=== PATIENT | male | born 1960 | race Caucasian/White ===

== ENCOUNTER → 2018-02-02 | Outpatient (CLI) | payer BC ==
[2018-02-02 10:25] LABS: ABSOLUTE EOSINOPHILS # (AUTO) 0.1 10^3/uL (0.0-0.6); ABSOLUTE LYMPHOCYTES (AUTO) 1.3 10^3/uL (0.5-4.7); ABSOLUTE MONOCYTES (AUTO) 0.5 10^3/uL (0.1-1.4); ABSOLUTE NEUT (AUTO) 2.7 10^3/uL (1.7-8.2); BASOPHILS % (AUTO) 0.8 % (0-2); EOSINOPHILS % (AUTO) 1.5 % (0-6); HEMATOCRIT 45.8 % (37.9-51.0); HEMOGLOBIN 15.7 g/dL (13.5-17.0); LYMPHOCYTES % (AUTO) 29.4 % (13-45); MEAN CORPUSCULAR HEMOGLOBIN 32.2 pg (27.0-33.4); MEAN CORPUSCULAR HGB CONC 34.2 g/dL (32.0-36.0); MEAN CORPUSCULAR VOLUME 94 fl (80-97); MONOCYTES % (AUTO) 9.8 % (3-13); PLATELET COUNT 181 10^3/uL (150-450); RED BLOOD COUNT 4.86 10^6/uL (4.35-5.55); RED CELL DISTRIBUTION WIDTH 13.1 % (11.5-14.0); SEGMENTED NEUTROPHILS % (AUTO) 58.5 % (42-78); TOTAL CELLS COUNTED % (AUTO) 100 %; WHITE BLOOD COUNT 4.6 10^3/uL (4.0-10.5)
[2018-02-02 10:35] LABS: APPEARANCE,URINE SLIGHTLY-CLOUDY; BILIRUBIN,URINE NEGATIVE (NEGATIVE); COLOR,URINE YELLOW; GLUCOSE, URINE >=500 mg/dL (NEGATIVE); KETONES,URINE NEGATIVE (NEGATIVE); LEUKOCYTE ESTERASE,URINE NEGATIVE (NEGATIVE); NITRITE,URINE NEGATIVE (NEGATIVE); PROTEIN,URINE NEGATIVE (NEGATIVE); URINE SPECIFIC GRAVITY 1.024; UROBILINOGEN,URINE NEGATIVE mg/dL (<2.0)
--- NOTE | 2018-02-02 10:54 | RADIOLOGY REPORT (SQ) ---
EXAM DESCRIPTION: CHEST PA/LATERAL COMPLETED DATE/TIME: 02/02/2018 10:06 am REASON FOR STUDY: TYPE 2 DIABETES MELLITUS WITHOUT COMPLICATIONS COMPARISON: 01/02/2015 EXAM PARAMETERS: NUMBER OF VIEWS: two views TECHNIQUE: Digital Frontal and Lateral radiographic views of the chest acquired. RADIATION DOSE: NA LIMITATIONS: none FINDINGS: LUNGS AND PLEURA: No opacities, masses or pneumothorax. No pleural effusion. MEDIASTINUM AND HILAR STRUCTURES: No masses or contour abnormalities. HEART AND VASCULAR STRUCTURES: Heart normal size. No evidence for failure. BONES: No acute findings. HARDWARE: None in the chest. OTHER: No other significant finding. IMPRESSION: NO SIGNIFICANT RADIOGRAPHIC FINDING IN THE CHEST. TECHNICAL DOCUMENTATION: JOB ID: [id number] [employer]- All Rights Reserved Reading location - IP/workstation name: [email or web address]
[2018-02-02 10:58] LABS: ANION GAP 14 (5-19); BLOOD UREA NITROGEN 22 mg/dL (7-20); CALCIUM 10.1 mg/dL (8.4-10.2); CARBON DIOXIDE 28 mmol/L (22-30); CHLORIDE 101 mmol/L (98-107); GLUCOSE 323 mg/dL (75-110); POTASSIUM 5.3 mmol/L (3.6-5.0); SODIUM 142.8 mmol/L (137-145)
--- NOTE | 2018-02-02 13:27 | EKG REPORT ---
SEVERITY:- NORMAL ECG - SINUS RHYTHM : Confirmed by: Fransisco Yanes MD 02-Feb-2018 13:26:48
== END ==
LOC: OD 09:27
PROVIDERS: ATTEND Orthopaedic Surgery
DX: E11.9 Type 2 diabetes mellitus without complications (principal); E78.00 Pure hypercholesterolemia, unspecified
CPT/HCPCS: 36415; 71046; 80048; 81001; 83036; 85025; 93005; 93010

== ENCOUNTER → 2018-02-26 | Outpatient (CLI) | payer BC ==
[2018-02-26 11:29] LABS: ANION GAP 12 (5-19); BLOOD UREA NITROGEN 17 mg/dL (7-20); CALCIUM 9.7 mg/dL (8.4-10.2); CARBON DIOXIDE 24 mmol/L (22-30); CHLORIDE 108 mmol/L (98-107); GLUCOSE 114 mg/dL (75-110); POTASSIUM 4.3 mmol/L (3.6-5.0); SODIUM 143.6 mmol/L (137-145)
== END ==
LOC: OD 09:58
PROVIDERS: ATTEND Orthopaedic Surgery
DX: Z01.810 Encounter for preprocedural cardiovascular examination (principal); Z01.812 Encounter for preprocedural laboratory examination
CPT/HCPCS: 36415; 80048; 83036

== ENCOUNTER 2018-03-02 05:36 | Inpatient (IN) | payer BC ==
[~2018-03-02 05:36] MED LIST: BUPIVACAINE INJ/PF LIPOSOME/PF 266 MG/20 ML SDV IJ PRN; BUPIVACAINE INJ/PF LIPOSOME/PF 266 MG/20 ML SDV INJ PRN; CEFAZOLIN INJ 1 GM VIAL IV PRN; IBUPROFEN 800 MG in NORMAL SALINE 250 ML IV PRN; LACTATED RINGERS 1000 ML IV PRN; LANSOPRAZOLE 15 MG TAB.RAP.DR PO PRN; LIDOCAINE 0.5% INJ-PF (5 MG/ML) 50 ML SDV SUBCUT PRN; OXYCODONE HCL SR 10 MG TABLET PO PRN
[2018-03-02] MEDS: VANCOMYCIN HCL 1,000 MG in DEXTROSE 5%-WATER 250 ML IV PRN ×2 (05:46→11:18)
[2018-03-02] MEDS: OXYCODONE HCL SR 10 MG TABLET PO PRN ×2 (06:15→11:18)
[2018-03-02] MEDS: LANSOPRAZOLE 15 MG TAB.RAP.DR PO PRN ×2 (06:16→11:18)
[2018-03-02] MEDS ORDERED: LIDOCAINE 2% INJ-PF (20 MG/ML) 10 ML AMPUL ONE (06:34)
[2018-03-02] MEDS ORDERED: FENTANYL CITRATE INJ/PF 100 MCG/2 ML AMPUL ONE ×2 (06:34→07:20)
[2018-03-02] MEDS ORDERED: ACETAMINOPHEN 1,000 MG/100 ML RTUPB IV ONE (06:35)
[2018-03-02] MEDS ORDERED: ONDANSETRON HCL INJ/PF 4 MG/2 ML SDV ONE (06:35)
[2018-03-02] MEDS ORDERED: MIDAZOLAM 2 MG/2 ML INJ ONE (06:35)
[2018-03-02] MEDS ORDERED: PROPOFOL INJ 200 MG/20 ML VIAL IV ONE (06:35)
[2018-03-02] MEDS ORDERED: DEXAMETHASONE SOD PHOSPHATE INJ 4 MG/1 ML VIAL ONE (06:35)
[2018-03-02] MEDS ORDERED: BUPIVACAINE HCL/DEX-WATER/PF 15 MG/2 ML AMPULE ONE (06:36)
[2018-03-02] MEDS ORDERED: BUPIVACAINE INJ/PF LIPOSOME/PF 266 MG/20 ML SDV ONE (06:40)
[2018-03-02] MEDS ORDERED: THROMBIN (BOVINE) 5000 UNIT EPITAXIS KIT ONE (06:40)
[2018-03-02] MEDS ORDERED: THROMBIN (BOVINE) TOPICAL 20000 UNIT VIAL ONE (06:40)
[2018-03-02] MEDS ORDERED: PROMETHAZINE HCL INJ 25 MG/1 ML VIAL IV PRN ×2 (07:55)
[2018-03-02] MEDS ORDERED: MORPHINE SULFATE 10 MG/ML INJ IV PRN ×4 (07:55→08:27)
[2018-03-02] MEDS ORDERED: MEPERIDINE HCL/PF INJ 25 MG/1 ML DISP.SYRIN IV PRN (07:55)
[2018-03-02] MEDS ORDERED: FENTANYL CITRATE INJ/PF 100 MCG/2 ML AMPUL IV PRN ×3 (07:55)
[2018-03-02] MEDS ORDERED: DIPHENHYDRAMINE HCL 50 MG/ML VIAL IV PRN ×2 (07:55→08:27)
--- NOTE | 2018-03-02 08:26 | Operative Report ---
Operative Report DATE OF SURGERY: 03/02/18 PREOPERATIVE DIAGNOSIS: Right knee arthritis OPERATION: Right knee arthroplasty SURGEON: ADRIANNA ALLEN ANESTHESIA: GA TISSUE REMOVED OR ALTERED: Bone to pathology ESTIMATED BLOOD LOSS: 100 PROCEDURE: Implants used: Femur: [place] triathlon size 5 CR femur Tibia: 4 tibia Tibial liner: 11 mm CS insert Patella: 35 mm oval patella Procedure with the patient supine on the operating table the right the limb is prepped and draped in a sterile fashion. The limb was elevated for exsanguination and the tourniquet inflated to 280 torr. A standard midline median parapatellar approach the knee is taken. Access is gained to the femoral canal through the intercondylar notch. Intramedullary alignment instrumentation used to resect 10 mm of distal femur in 5 of valgus. Sizing guide indicated a size 5 femur. Appropriate cutting jig is then used to fashion anterior posterior and chamfer cuts. A trial reduction femurs performed and this is judged to be adequate. Attention was next turned to the tibia. Using an extra medullary alignment system 9 millimeters was resected off the lateral tibial plateau. This is sized to a size 4 tibia. A trial reduction was now performed with a 5 femur and a for tibia using a 11 millimeters spacer. It is full extension and central patellofemoral tracking. The articular surface the patella was next resected using an oscillating saw. All trial implants were removed. Polymethylmethacrylate is mixed and used to cement the above implants in place. On adequate curing the cement excess cement was removed the tourniquet was deflated hemostasis obtained the wound is then closed in layers using interrupted Vicryl followed by stephani. A sterile compressive dressing was applied and the patient returned to recovery room in satisfactory condition.
[2018-03-02] MEDS ORDERED: MORPHINE SULFATE 10 MG/ML INJ IM PRN (08:27)
[2018-03-02] MEDS ORDERED: ZOLPIDEM TARTRATE 5 MG TABLET PO PRN (08:27)
[2018-03-02] MEDS ORDERED: ACETAMINOPHEN 325 MG TABLET PO PRN (08:27)
[2018-03-02] MEDS ORDERED: ONDANSETRON 4 MG TAB.RAPDIS PO PRN (08:27)
[2018-03-02] MEDS ORDERED: RINGERS SOLUTION,LACTATED 1,000 ML IV PRN (08:27)
[2018-03-02] MEDS ORDERED: ONDANSETRON HCL INJ/PF 4 MG/2 ML SDV IV PRN (08:27)
[2018-03-02] MEDS ORDERED: MAG HYDROX/AL HYDROX/SIMETH SUSP 30 ML UDCUP PO PRN (08:27)
[2018-03-02] MEDS: FENTANYL CITRATE INJ/PF 100 MCG/2 ML AMPUL ONE ×2 (08:48→08:53)
[2018-03-02] MEDS ORDERED: DEXTROSE 50%-WATER SYRINGE 12.5 GM/25 ML DOSE IV PRN (09:14)
[2018-03-02] MEDS ORDERED: DEXTROSE 50%-WATER SYRINGE 25 GM/50 ML DOSE IV PRN (09:14)
[2018-03-02] MEDS ORDERED: DEXTROSE 40% GEL 15 GM TUBE PO PRN (09:14)
[2018-03-02] MEDS ORDERED: INSULIN LISPRO 100 UNIT/ML 3 ML VIAL SUBCUT PRN (09:14)
[2018-03-02] MEDS ORDERED: GLUCAGON,HUMAN RECOMB 1 MG INJ IM PRN (09:14)
[2018-03-02] MEDS ORDERED: DEXTROSE 40% GEL 15 GM TUBE X 2 PO PRN (09:14)
--- NOTE | 2018-03-02 09:38 | RADIOLOGY REPORT (SQ) ---
EXAM DESCRIPTION: KNEE RIGHT 2 VIEWS COMPLETED DATE/TIME: 03/02/2018 9:00 am REASON FOR STUDY: Post OP -Long Cassette in PACU M17.0 BILATERAL PRIMARY OSTEOARTHRITIS OF KNEE COMPARISON: None. NUMBER OF VIEWS: Two view(s). TECHNIQUE: Digital radiographic images of the right knee post-procedure. LIMITATIONS: None. FINDINGS: BONES: No worrisome or unexpected findings post-procedure. DEVICE: Total knee arthroplasty. SOFT TISSUES: No worrisome findings. Expected postoperative soft tissue changes. IMPRESSION: SATISFACTORY POSTOPERATIVE RIGHT KNEE. TECHNICAL DOCUMENTATION: JOB ID: [id number] [employer]- All Rights Reserved Reading location - IP/workstation name: [email or web address]
[2018-03-02] MEDS ORDERED: IBUPROFEN 800 MG in NORMAL SALINE 250 ML IV SCH (10:00)
[2018-03-02] MEDS ORDERED: CYANOCOBALAMIN 5000 MCG PO SCH (10:00)
[2018-03-02] MEDS ORDERED: (PENDING PHARMACY ID) (Metformin Hcl [Metformin Hcl] 1,000 MG) PO SCH (10:00)
[2018-03-02] MEDS ORDERED: (PENDING PHARMACY ID) (Canagliflozin [Invokana] 100 MG) PO SCH (10:00)
[2018-03-02] MEDS ORDERED: PIOGLITAZONE PO SCH (10:00)
[2018-03-02] MEDS ORDERED: OXYCODONE HCL SR 10 MG TABLET PO SCH (10:00)
[2018-03-02] MEDS ORDERED: ALOGLIPTIN PO SCH (10:00)
[2018-03-02] MEDS ORDERED: TRANEXAMIC ACID INJ/PF 1,000 MG/10 ML SDV IV ONE (10:00)
[2018-03-02] MEDS ORDERED: TADALAFIL 5 MG PO SCH (10:00)
[2018-03-02] MEDS ORDERED: (PENDING PHARMACY ID) (Rosuvastatin Calcium [Crestor 5 Mg Tablet] 5 MG) PO SCH (10:00)
[2018-03-02] MEDS ORDERED: CYANOCOBALAMIN (VITAMIN B-12) 1,000 MCG TABLET PO ONE (11:00)
[2018-03-02] MEDS: ASPIRIN 81 MG TABLET, CHEWABLE PO SCH (11:01)
[2018-03-02] MEDS: ENALAPRIL MALEATE 2.5 MG TABLET PO SCH ×2 (11:03→11:18)
[2018-03-02] MEDS: IBUPROFEN 800 MG in NORMAL SALINE 250 ML IV PRN ×2 (11:18→11:25)
[2018-03-02] MEDS: SENNOSIDES/DOCUSATE 8.6-50 MG 1 EACH TABLET PO SCH ×2 (11:23→18:37)
[2018-03-02] MEDS: PRENATAL VITAMIN W DHA CAPSULE PO SCH (11:24)
[2018-03-02] MEDS: FAMOTIDINE 20 MG TABLET PO SCH ×2 (11:24→18:40)
[2018-03-02] MEDS: OXYCODONE HCL IR 5 MG TABLET PO PRN ×2 (11:39→22:09)
[2018-03-02] MEDS: IBUPROFEN 800 MG in NORMAL SALINE 250 ML IV SCH ×2 (14:55→22:00)
[2018-03-02] MEDS ORDERED: SUCCINYLCHOLINE CHLORIDE INJ 200 MG/10 ML VIAL ONE (16:22)
[2018-03-02] MEDS ORDERED: ENALAPRIL MALEATE 2.5 MG TABLET PO SCH (18:00)
[2018-03-02] MEDS: OXYCODONE HCL SR 10 MG TABLET PO SCH (18:37)
[2018-03-02] MEDS: METFORMIN HCL 500 MG TABLET PO SCH (18:40)
[2018-03-02] MEDS ORDERED: VANCOMYCIN HCL 1,000 MG in DEXTROSE 5%-WATER 250 ML IV ONE (20:28)
[2018-03-02] MEDS: PREGABALIN 75 MG CAPSULE PO SCH (22:00)
[2018-03-02] MEDS ORDERED: ATORVASTATIN CALCIUM 10 MG TABLET PO SCH (22:00)
[2018-03-03] MEDS ORDERED: LANSOPRAZOLE 30 MG TAB.RAP.DR PO SCH (06:00)
[2018-03-03] MEDS: IBUPROFEN 800 MG in NORMAL SALINE 250 ML IV SCH (06:16)
[2018-03-03] MEDS: OXYCODONE HCL SR 10 MG TABLET PO SCH (06:16)
--- NOTE | 2018-03-03 06:32 | PDOC DISCHARGE SUMMARY ---
General - Admit/Disc Date/PCP Admission Date/Primary Care Provider: 03/02/18 05:36 HOLLY LOZANO Discharge Date: 03/03/18 - Discharge Diagnosis (1) Arthritis of right knee Is this a current diagnosis for this admission?: Yes - Additional Information Resuscitation Status: Full Code Discharge Diet: As Tolerated, Regular Discharge Activity: Balance Activity w/Rest, No Driving, No tub bath Home Medications: Alogliptin Adin/Pioglitazone [Oseni 25-30 mg Tablet] 1 tab PO DAILY 02/17/18 Aspirin [Aspirin 81 mg Chewable Tablet] 81 mg PO DAILY 02/17/18 Canagliflozin [Invokana] 100 mg PO DAILY 02/17/18 Cyanocobalamin (Vitamin B-12) [B-12] 5,000 mcg PO DAILY 02/17/18 Enalapril Maleate 1.25 mg PO DAILY 02/17/18 Famotidine 20 mg PO BID 02/17/18 Hydrocodone Bit/Acetaminophen [Hydrocodon-Acetaminophn 10-325] 1 tab PO Q8HP PRN 02/17/18 Ibuprofen [Motrin 800 mg Tablet] 800 mg PO BIDP PRN 02/17/18 Loratadine [Claritin 10 mg Tablet] 10 mg PO DAILYP PRN 02/17/18 Metformin HCl 1,000 mg PO BID 02/17/18 [place]-3 Fatty Acids/Fish Oil [Fish Oil 1,000 mg Capsule] 1,000 mg PO DAILY 02/17 Pregabalin [Lyrica] 150 mg PO BID 02/17/18 Rosuvastatin Calcium [Crestor 5 mg Tablet] 5 mg PO QHS 02/17/18 Tadalafil [Cialis] 5 mg PO QHS 02/17/18 Testosterone Cypionate [Depo-Testosterone] 100 mg IM .MONTHLY PRN 02/17/18 Cholecalciferol (Vitamin D3) [Vitamin D3 1000 Unit Tablet] 1,000 unit PO DAILY 03/02/18 Oxycodone HCl [Oxy-Ir 5 mg Tablet] 5 mg PO Q6HP PRN tablet 03/03/18 History of Present Illness History of Present Illness: JHOANA MADRIDSWETA JR is a 57 year old male Patient is a 57-year-old white male with past medical history significant for adult-onset diabetes with progressive bilateral knee pain and functional disability secondary osteoarthritis. Patient is admitted for an elective right knee arthroplasty. Hospital Course Hospital Course: Patient is admitted through the operating room where he undergoes uncomplicated right knee arthroplasty. Is returned to floor in satisfactory condition. He ambulates 300 feet with physical therapy on the day of surgery. Compressive dressing is removed on the first postoperative day. The underlying op site dressing is clean dry and intact. Physical Exam Vital Signs: Temp Pulse Resp BP Pulse Ox 37.2 C 106 H 16 105/46 L 96 03/03/18 05:34 03/03/18 05:34 03/03/18 05:34 03/03/18 05:34 03/03/18 04:00 Pulse Oximeter Continuous Start: 03/02/18 09: 52 Freq: RTQ4 Status: Active Document 03/03/18 04:00 [facility] (Rec: 03/03/18 05:34 SFL [id number]) Pulse Oximetry Assessment Oxygen Saturation (92-100) 96 Oxygen Delivery Method Room Air Equipment Usage Equipment in Use Continuous SpO2 Machine # 8 Intake & Output 03/01/18 03/02/18 03/03/18 06:59 06:59 06:59 Intake Total 0 5401 Output Total 3952 Balance 0 1449 General appearance: PRESENT: no acute distress, mild distress Head exam: PRESENT: normocephalic Respiratory exam: PRESENT: unlabored Cardiovascular exam: PRESENT: RRR Pulses: PRESENT: +1 pedal pulses bilateral Vascular exam: PRESENT: normal capillary refill GI/Abdominal exam: PRESENT: soft Rectal exam: PRESENT: deferred Extremities exam: PRESENT: other - Right knee dagoberto dressings clean dry and intact. There is minimal pedal edema. Distal neurovascular examination is intact. Neurological exam: PRESENT: alert, awake, oriented to person, oriented to place , oriented to time, oriented to situation. ABSENT: motor sensory deficit Psychiatric exam: PRESENT: appropriate affect, normal mood. ABSENT: homicidal ideation, suicidal ideation Skin exam: PRESENT: dry, intact, warm. ABSENT: cyanosis, rash Results Laboratory Results: 03/02/18 05:53 Impressions: Knee X-Ray 03/02/18 08:30 IMPRESSION: SATISFACTORY POSTOPERATIVE RIGHT KNEE. Status: Imported from [facility] Qualifiers - * PATIENT BEING DISCHARGED WITH ANY OF THE FOLLOWING DIAGNOSIS: No VTE patient discharged on overlapping Therapy?: Yes Plan Discharge Plan: Patient to be discharged home with home health nursing and physical therapy. Social work to arrange for DME. Follow-up with Dr. Ceja [facility] for surgery in 2 weeks for staple removal.
[2018-03-03 06:52] LABS: HEMATOCRIT 38.3 % (37.9-51.0); HEMOGLOBIN 13.3 g/dL (13.5-17.0); MEAN CORPUSCULAR HEMOGLOBIN 32.4 pg (27.0-33.4); MEAN CORPUSCULAR HGB CONC 34.7 g/dL (32.0-36.0); MEAN CORPUSCULAR VOLUME 94 fl (80-97); PLATELET COUNT 166 10^3/uL (150-450); RED BLOOD COUNT 4.09 10^6/uL (4.35-5.55); RED CELL DISTRIBUTION WIDTH 13.5 % (11.5-14.0); WHITE BLOOD COUNT 8.9 10^3/uL (4.0-10.5)
[2018-03-03 07:25] LABS: ANION GAP 15 (5-19); BLOOD UREA NITROGEN 19 mg/dL (7-20); CALCIUM 9.2 mg/dL (8.4-10.2); CARBON DIOXIDE 21 mmol/L (22-30); CHLORIDE 106 mmol/L (98-107); GLUCOSE 115 mg/dL (75-110); POTASSIUM 4.2 mmol/L (3.6-5.0); SODIUM 141.6 mmol/L (137-145)
[2018-03-03] MEDS ORDERED: CYANOCOBALAMIN (VITAMIN B-12) 1,000 MCG TABLET PO SCH (10:00)
[2018-03-03] MEDS: SENNOSIDES/DOCUSATE 8.6-50 MG 1 EACH TABLET PO SCH (10:12)
[2018-03-03] MEDS: OXYCODONE HCL IR 5 MG TABLET PO PRN (10:12)
[2018-03-03] MEDS: PREGABALIN 75 MG CAPSULE PO SCH (10:13)
[2018-03-03] MEDS: FAMOTIDINE 20 MG TABLET PO SCH (10:13)
[2018-03-03] MEDS: PRENATAL VITAMIN W DHA CAPSULE PO SCH (10:14)
[2018-03-03] MEDS: ASPIRIN 81 MG TABLET, CHEWABLE PO SCH (10:14)
[2018-03-03] MEDS: METFORMIN HCL 500 MG TABLET PO SCH (10:22)
[2018-03-03 11:18] VITALS: BP 110/47
== END 2018-03-03 11:22 | disposition home health service (06) | DRG 470 ==
LOC: INOR 05:36 → 4S 09:46
PROVIDERS: ADMIT Orthopaedic Surgery; ATTEND Orthopaedic Surgery
PROC: 0SRC0J9 Replacement of Right Knee Joint with Synthetic Substitute, Cemented, Open Approach (ICD-10-PCS; principal; 2018-03-02 07:30)
DX: M17.11 Unilateral primary osteoarthritis, right knee (principal); E11.40 Type 2 diabetes mellitus with diabetic neuropathy, unspecified; I10 Essential (primary) hypertension; E55.9 Vitamin D deficiency, unspecified; G47.30 Sleep apnea, unspecified; E78.5 Hyperlipidemia, unspecified; Z79.84 Long term (current) use of oral hypoglycemic drugs; Z79.82 Long term (current) use of aspirin; Z90.49 Acquired absence of other specified parts of digestive tract
CPT/HCPCS: 01402; 36415; 80048; 82962; 84132; 85027; 88305; 88311; 94762; 94799; C2625; C9290; J0131; J0330; J0690; J1100; J1741; J2250; J2270; J2405; J2704; J3010; J3370; J3490; J7050; J7060